=== PATIENT | male | born 1995 | race Two or more races ===

== ENCOUNTER 2022-06-23 13:06 | Emergency (ER) | payer OTHER ==
[~2022-06-23] VITALS: Ht 172.7 cm; Wt 113.4 kg
[2022-06-23] MEDS ORDERED: STRIBILD TABLE1 EACH PO (15:07)
[2022-06-23] MEDS ORDERED: TYLENOL325 MG (15:08)
== END 2022-06-23 15:32 | disposition home or self-care (01) ==
LOC: ER 13:06
DX: S61.012A Laceration without foreign body of left thumb without damage to nail, initial encounter (principal); W45.8XXA Other foreign body or object entering through skin, initial encounter; Y93.89 Activity, other specified; Y92.520 Airport as the place of occurrence of the external cause; Y99.8 Other external cause status; Z88.8 Allergy status to other drugs, medicaments and biological substances

== ENCOUNTER → 2025-06-06 | Emergency (ER) | payer OTHER ==
[~2025-06-06] VITALS: Ht 172.7 cm; Wt 104.3 kg
[~2025-06-06] MED LIST: IBU600 MG PO; KETOROLAC TROMETHAMINE 30 MG VIAL IM STA; KETOROLAC TROMETHAMINE 30 MG VIAL ONE; ORPHENADRINE CITRATE 30 MG/ML AMPUL IM STA; ORPHENADRINE CITRATE 30 MG/ML AMPUL ONE; STRIBILD TABLE1 EACH PO; TYLENOL325 MG
== END | disposition home or self-care (01) ==
LOC: ER 18:22
DX: S43.491A Other sprain of right shoulder joint, initial encounter (principal); X50.9XXA Other and unspecified overexertion or strenuous movements or postures, initial encounter; Y93.89 Activity, other specified; Y92.89 Other specified places as the place of occurrence of the external cause; M25.531 Pain in right wrist; Z88.8 Allergy status to other drugs, medicaments and biological substances
CPT/HCPCS: 73030; 73110; 73130; 96372; 99283; J1885; J2360